=== PATIENT | male | born 1955 ===

== ENCOUNTER → 2024-03-30 12:28 | Outpatient (REF) | payer MEDICARE, OTHER, SELFPAY | LOC: CLAB 12:28 | PROVIDERS: ATTENDING PHYSICIAN Specialist | DX: R97.20 Elevated prostate specific antigen [PSA] (principal) | CPT/HCPCS: 88305 ==

== ENCOUNTER → 2024-12-03 16:53 | Outpatient (REF) | payer MEDICARE, OTHER, SELFPAY | LOC: RAD 16:53 | PROVIDERS: ATTENDING PHYSICIAN Internal Medicine | DX: R04.2 Hemoptysis (principal) | CPT/HCPCS: 71250 ==